=== PATIENT | female | born 1960 ===

== ENCOUNTER 2025-03-30 10:08 | Emergency (ER) | payer OTHER ==
[~2025-03-30] VITALS: Ht 167.6 cm; Wt 93.0 kg
[2025-03-30 10:18] VITALS: BP 135/72; PULSE 94; TEMP 100.5; O2SAT 95
[2025-03-30] MEDS: acetaminophen 325mg tablet PO ONE (11:43)
--- NOTE | 2025-03-30 12:00 | Physician Documentation ---
History of Present Illness ~ Chief Complaint: Flu Symptoms Stated Complaint: FLU LIKE SYMPTOMS Time Seen by MD: 11:19 HPI 64-year-old female presents to the ED with a complaint of flu-like symptoms. She states she just flew back from [place] yesterday and developed flu-like symptoms and feels generally ill today. She has not used any [id number] remedies. Denies any history of COPD CHF or diabetes. Says she thinks she may have a fever. Medication Reconciliation Allergies: Coded Allergies: No Known Allergies (Unverified , 03/30/25) Physical Exam Vital Signs: Temperature: 100.5, Source: Oral, Heart Rate: 94, Respiratory Rate: 16, BP: 135/72, Pulse Oximetry: 95, Weight: 93.000 Oxygen Flow Rate: 0 Progress Results/Orders Results/Orders Completed Orders - SEBASTIEN GIRON NP Acetaminophen 325mg Tablet (Tylenol Tabl (03/30/25 11:30) Medications Received in ER Medications (Trade) Dose Ordered Sig/Naina Route PRN Reason Start Time Stop Time Status Last Admin Dose Admin (Tylenol tablet) 650 mg ONCE ONCE PO 03/30/25 11:30 03/30/25 11:31 DC 03/30/25 11:43 650 MG Vital Signs 03/30/25 03/30/25 10:18 12:58 Temp 100.5 Pulse 94 Resp 16 16 B/P (MAP) 135/72 Pulse Ox 95 O2 Delivery Room Air O2 Flow Rate 0 Departure Disposition: 01 HOME / SELF CARE / HOMELESS Impression: Primary Impression: Influenza Condition: Stable Discharge Instructions: Influenza, Adult Additional Instructions: Rest increase fluid intake and take Tylenol and ibuprofen alternating as directed Referrals: NO PRIMARY CARE PROVIDER (PCP) Signature Scribe Signature: f Attestation: Scribed for Sebastien Giron Stringed Instrument Assembler by Sebastien Harrison NP . 03/30/25 18:25 SEBASTIEN GIRON NP Mar 30, 2025 12:00
[2025-03-30 12:58] VITALS: RESP 16
== END 2025-03-30 12:49 | disposition home or self-care (01) ==
LOC: ER 10:11
DX: J11.1 Influenza due to unidentified influenza virus with other respiratory manifestations (principal)
CPT/HCPCS: 99283